=== PATIENT | female | born 1995 | race Two or more races ===

== ENCOUNTER 2017-10-08 20:18 | Emergency (ER) | payer SELFPAY ==
[~2017-10-08] VITALS: Ht 152.4 cm; Wt 50.0 kg
[2017-10-08] MEDS ORDERED: ONDANSETRON HCL 4MG/2ML VIAL IV STA (21:09)
[2017-10-08] MEDS ORDERED: MORPHINE SULFATE 4 MG/ML CPJ (NOT FOR IM USE) IV STA (21:09)
[2017-10-08] MEDS ORDERED: SODIUM CHLORIDE 0.9% 1,000 ML IV ONE (21:09)
[2017-10-08] MEDS ORDERED: TETANUS, DIPHTHERIA, PERTUSSIS VAC/PF 0.5ML (>7YR OLD) IM ONE (21:15)
[2017-10-08] MEDS ORDERED: LIDOCAINE HCL/PF 1% 10 MG/ML 5ML VIAL IJ ONE (21:15)
[2017-10-08 23:30] VITALS: BP 103/62
== END 2017-10-09 00:15 | disposition left against medical advice (07) ==
LOC: ER 20:35
DX: S01.511A Laceration without foreign body of lip, initial encounter (principal); M25.562 Pain in left knee; M54.2 Cervicalgia; M54.9 Dorsalgia, unspecified; G40.909 Epilepsy, unspecified, not intractable, without status epilepticus; F12.10 Cannabis abuse, uncomplicated; V43.12XA Car passenger injured in collision with other type car in nontraffic accident, initial encounter; W22.12XA Striking against or struck by front passenger side automobile airbag, initial encounter; Y93.89 Activity, other specified; Y92.89 Other specified places as the place of occurrence of the external cause; Y99.8 Other external cause status
CPT/HCPCS: 12013; 70450; 71045; 71250; 72070; 72100; 72125; 73521; 73560; 81025; 93005; 99284; J3490; J7030; Z7610; 90715; J2270; J2405

== ENCOUNTER 2018-05-05 10:11 | Inpatient (IN) | payer MEDICAID ==
[~2018-05-05] VITALS: Ht 152.4 cm; Wt 50.3 kg
[2018-05-05] MEDS ORDERED: SODIUM CHLORIDE 0.9% 1,000 ML IV ONE (10:37)
[2018-05-05] MEDS ORDERED: LORAZEPAM 2MG/ML CPJ IV ONE (11:00)
[2018-05-05 11:09] LABS: CLARITY URINE CLOUDY (CLEAR); COLOR URINE DARK YELLOW (YELLOW); KETONES URINE 1+ (NEGATIVE); LEUKOCYTE ESTERASE URINE 1+ (NEGATIVE); NITRITE URINE NEGATIVE (NEGATIVE); OCCULT BLOOD URINE NEGATIVE (NEGATIVE); PROTEIN URINE TRACE (NEGATIVE); SPECIFIC GRAVITY URINE 1.034 (1.005-1.030)
[2018-05-05 11:14] LABS: CHLORIDE 108 mEq/L (98-107)
[2018-05-05 11:21] LABS: BASOPHILS % 0.3 % (0.0-2.0); EOSINOPHILS % 0.4 % (0.0-5.0); ETHANOL BLOOD < 10 mg/dL; HEMATOCRIT. 39.5 % (36.0-48.0); LYMPHOCYTES % 24.8 % (20.0-50.0); MEAN CORPUSCULAR HEMOGLOBIN 30.8 pg (28.0-32.0); MEAN CORPUSCULAR VOLUME 93.7 fL (81.0-99.0); MEAN PLATELET VOLUME 7.9 fl (7.4-10.4); MONOCYTES % 7.6 % (2.0-8.0); NEUTROPHILS % 66.9 % (40.0-76.0); PLATELET 289 x1000/uL (130-400); RED BLOOD CELL COUNT 4.21 mill/uL (4.2-5.4); RED CELL DISTRIBUTION WIDTH 13.2 % (11.6-14.6)
[2018-05-05 11:24] LABS: INR 1.1; PROTHROMBIN TIME 10.7 sec (9.1-11.1)
[2018-05-05] MEDS ORDERED: POTASSIUM CHLORIDE 20MEQ TABLET SR PO ONE (13:30)
[2018-05-05] MEDS ORDERED: POTASSIUM CHLORIDE INJ 40 MEQ in DEXT 5% WATER 500 ML IV ONE (14:00)
[2018-05-05] MEDS ORDERED: LEVETIRACETAM 500MG PREMIX 100 ML IV ONE (14:00)
[2018-05-05 14:12] LABS: *AMPHETAMINES SCREEN URINE NEGATIVE (NEGATIVE); *BARBITURATES SCREEN URINE NEGATIVE (NEGATIVE); *BENZODIAZEPINES SCREEN URINE NEGATIVE (NEGATIVE)
[2018-05-05 14:13] LABS: *COCAINE SCREEN URINE NEGATIVE (NEGATIVE); METHADONE URINE SCREEN NEGATIVE (NEGATIVE); OPIATES URINE SCREEN NEGATIVE (NEGATIVE); PHENCYCLIDINE URINE SCREEN NEGATIVE (NEGATIVE)
[2018-05-05] MEDS ORDERED: GUAIFENESIN 200MG/10ML SUGAR FREE UDC PO PRN (14:30)
[2018-05-05] MEDS ORDERED: LEVETIRACETAM 500MG PREMIX 100 ML IV NR (14:30)
[2018-05-05] MEDS ORDERED: POTASSIUM CHLORIDE INJ 40 MEQ in DEXT 5% WATER 500 ML IV NR (14:30)
[2018-05-05] MEDS ORDERED: IPRATROPIUM/ALBUTEROL 0.5-3(2.5)MG/3ML NEB INH PRN (14:30)
[2018-05-05] MEDS ORDERED: MAGNESIUM/ALUMINUM HYDROXIDE/SIMETHICONE 30ML UDC PO PRN (14:30)
[2018-05-05] MEDS ORDERED: DIPHENHYDRAMINE 50MG/ML VIAL IV PRN (14:30)
[2018-05-05] MEDS ORDERED: CLONIDINE 0.1MG TABLET PO PRN (14:30)
[2018-05-05] MEDS ORDERED: DOCUSATE SODIUM 100MG CAPSULE PO PRN (14:30)
[2018-05-05] MEDS ORDERED: ACETAMINOPHEN 325MG TABLET PO PRN (14:30)
[2018-05-05] MEDS ORDERED: ONDANSETRON HCL 4MG/2ML INJ IV PRN (14:30)
[2018-05-05 14:49] LABS: CANNABINOID URINE SCREEN PRESUMTIVE POSITIVE (NEGATIVE)
[2018-05-05] MEDS ORDERED: HYDROMORPHONE HCL/PF 2MG/ML CPJ IV PRN (17:30)
[2018-05-05 17:47] VITALS: BP 108/73
[2018-05-05] MEDS: ENOXAPARIN 40MG/0.4ML SYR SUBCUT SCH (18:08)
[2018-05-05] MEDS: LORAZEPAM 2MG/ML CPJ IV PRN (18:36)
[2018-05-05 20:00] VITALS: BP 110/58
[2018-05-05] MEDS ORDERED: NA PHOS,M-B/NA PHOS,DI-BA ENEMA 118ML PR PRN (21:00)
[2018-05-05] MEDS: DEXT 5%/0.45% NACL KCL 10MEQ/L 1,000 ML IV SCH (21:18)
[2018-05-06] VITALS: BP 108/52
[2018-05-06 00:27] LABS: CHLORIDE 109 mEq/L (98-107)
[2018-05-06] MEDS: LORAZEPAM 2MG/ML CPJ IV PRN ×4 (03:19→18:06)
[2018-05-06 04:00] VITALS: BP 99/55
[2018-05-06 07:15] LABS: BASOPHILS % 0.4 % (0.0-2.0); EOSINOPHILS % 1.3 % (0.0-5.0); HEMATOCRIT. 39.6 % (36.0-48.0); HEMOGLOBIN. 12.9 g/dL (12.0-16.0); LYMPHOCYTES % 37.8 % (20.0-50.0); MEAN CORPUSCULAR HEMOGLOBIN 30.8 pg (28.0-32.0); MEAN CORPUSCULAR VOLUME 94.2 fL (81.0-99.0); MEAN PLATELET VOLUME 8.3 fl (7.4-10.4); MONOCYTES % 7.6 % (2.0-8.0); NEUTROPHILS % 52.9 % (40.0-76.0); PLATELET 262 x1000/uL (130-400); RED CELL DISTRIBUTION WIDTH 13.1 % (11.6-14.6)
[2018-05-06] MEDS: DEXT 5%/0.45% NACL KCL 10MEQ/L 1,000 ML IV SCH (07:50)
[2018-05-06 08:00] VITALS: BP 100/67
[2018-05-06 08:08] LABS: CHLORIDE 110 mEq/L (98-107)
[2018-05-06 08:17] LABS: LDL CHOLESTEROL 37 mg/dL (5-100)
[2018-05-06 08:19] LABS: HDL CHOLESTEROL 47 mg/dL (40-59); T4 FREE 1.17 ng/dL (0.76-1.46)
[2018-05-06] MEDS ORDERED: LORAZEPAM 2MG/ML CPJ IV ONE (10:00)
[2018-05-06] MEDS: LEVETIRACETAM 500 MG in SODIUM CHLORIDE 0.9% 100 ML IV SCH ×2 (10:40→21:39)
[2018-05-06 11:46] VITALS: BP 99/62
[2018-05-06] MEDS ORDERED: CLONAZEPAM 1MG TABLET PO SCH (15:00)
[2018-05-06 15:51] LABS: UCG SCREEN NEGATIVE
[2018-05-06 16:00] VITALS: BP 102/67
[2018-05-06] MEDS: CLONAZEPAM 0.5MG TABLET PO SCH (16:24)
[2018-05-06] MEDS: ENOXAPARIN 40MG/0.4ML SYR SUBCUT SCH (18:00)
[2018-05-06] MEDS: HYDROCODONE/ACETAMINOPHEN 5/325MG TABLET PO PRN ×2 (18:44→23:50)
[2018-05-06 20:00] VITALS: BP 90/57
[2018-05-07] VITALS: BP 102/56
[2018-05-07] MEDS: LORAZEPAM 2MG/ML CPJ IV PRN (02:20)
[2018-05-07 04:00] VITALS: BP 102/50
[2018-05-07] MEDS: DEXT 5%/0.45% NACL KCL 10MEQ/L 1,000 ML IV SCH ×2 (07:33→10:30)
[2018-05-07] MEDS: CLONAZEPAM 0.5MG TABLET PO SCH (09:00)
[2018-05-07] MEDS: LEVETIRACETAM 500 MG in SODIUM CHLORIDE 0.9% 100 ML IV SCH (09:26)
== END 2018-05-07 15:00 | disposition home or self-care (01) | DRG 241 ==
LOC: ER 10:11 → 8WST 14:10 → ENRESERV 15:51
PROVIDERS: ADMIT Internal Medicine; ATTEND Internal Medicine
DX: K29.70 Gastritis, unspecified, without bleeding (principal); R56.9 Unspecified convulsions; E87.8 Other disorders of electrolyte and fluid balance, not elsewhere classified; F12.90 Cannabis use, unspecified, uncomplicated; I10 Essential (primary) hypertension
CPT/HCPCS: 36415; 71045; 80048; 80061; 80305; 80320; 81025; 83605; 84439; 84443; 84484; 93005; 96365; 96367; 96375; 99285; J1650; J1953; J2060; J3480; J7030; J7050; J7060; G0480

== ENCOUNTER 2019-12-12 11:46 | Inpatient (IN) | payer MEDICAID ==
[~2019-12-12] VITALS: Ht 162.6 cm; Wt 62.1 kg
[2019-12-12] MEDS ORDERED: PNV1TABL76 PO (12:12)
[2019-12-12] MEDS ORDERED: CITRIC ACID/SODIUM CITRATE SOLN 30ML UDC PO NR (13:00)
[2019-12-12] MEDS ORDERED: NALOXONE HCL 0.4 MG/ML 1ML VIAL IM PRN (13:00)
[2019-12-12] MEDS ORDERED: DEXT 5%/LR + PITOCIN 20UNITS/L 1,000 ML IV SCH (13:00)
[2019-12-12] MEDS ORDERED: METHYLERGONOVINE MALEATE 0.2 MG/ML IM PRN (13:00)
[2019-12-12] MEDS ORDERED: CARBOPROST TROMETHAMINE 250 MCG/ML AMPUL IM PRN (13:00)
[2019-12-12] MEDS ORDERED: METOCLOPRAMIDE HCL 10MG/2ML VIAL ONE (13:12)
[2019-12-12] MEDS ORDERED: EPHEDRINE SULFATE 50MG/ML VIAL ONE (13:12)
[2019-12-12] MEDS ORDERED: ONDANSETRON HCL 4MG/2ML INJ ONE (13:12)
[2019-12-12] MEDS ORDERED: OXYTOCIN 10 UNITS/ML 1ML ONE ×2 (13:12→17:29)
[2019-12-12] MEDS ORDERED: GLYCOPYRROLATE 0.2 MG/ML 2ML VIAL ONE (13:12)
[2019-12-12] MEDS ORDERED: MORPHINE SULFATE/PF 1MG/ML 10ML AMP ONE (13:12)
[2019-12-12] MEDS ORDERED: FENTANYL CITRATE/PF 50MCG/ML 2ML VIAL ONE (13:12)
[2019-12-12] MEDS ORDERED: PHENYLEPHRINE HCL 10 MG/ML 1ML (IV VIAL) IV ONE (13:12)
[2019-12-12] MEDS ORDERED: CEFAZOLIN SODIUM 1000MG/VIAL ONE (13:12)
[2019-12-12] MEDS: LACTATED RINGERS 1,000 ML IV SCH ×2 (13:18→14:31)
[2019-12-12 14:21] LABS: BASOPHILS % 0.2 % (0.0-2.0); EOSINOPHILS % 0.8 % (0.0-5.0); HEMATOCRIT. 36.4 % (36.0-48.0); HEMOGLOBIN. 12.2 g/dL (12.0-16.0); LYMPHOCYTES % 19.7 % (20.0-50.0); MEAN CORPUSCULAR HEMOGLOBIN 30.6 pg (28.0-32.0); MEAN CORPUSCULAR VOLUME 91.2 fL (81.0-99.0); MEAN PLATELET VOLUME 8.4 fl (7.4-10.4); MONOCYTES % 6.5 % (2.0-8.0); NEUTROPHILS % 72.8 % (40.0-76.0); PLATELET 245 x1000/uL (130-400); RED BLOOD CELL COUNT 3.99 mill/uL (4.2-5.4); RED CELL DISTRIBUTION WIDTH 13.9 % (11.6-14.6)
[2019-12-12 14:31] LABS: INR 0.9; PARTIAL THROMBOPLASTIN TIME 26.2 sec (23.4-31.0); PROTHROMBIN TIME 9.7 sec (9.6-11.0)
[2019-12-12 14:33] LABS: *AMPHETAMINES SCREEN URINE NEGATIVE (NEGATIVE); *BENZODIAZEPINES SCREEN URINE NEGATIVE (NEGATIVE); *COCAINE SCREEN URINE NEGATIVE (NEGATIVE); CANNABINOID URINE SCREEN NEGATIVE (NEGATIVE); METHADONE URINE SCREEN NEGATIVE (NEGATIVE); OPIATES URINE SCREEN NEGATIVE (NEGATIVE); PHENCYCLIDINE URINE SCREEN NEGATIVE (NEGATIVE)
[2019-12-12 14:34] LABS: *BARBITURATES SCREEN URINE NEGATIVE (NEGATIVE)
[2019-12-12 14:53] LABS: CLARITY URINE CLEAR (CLEAR); COLOR URINE YELLOW (YELLOW); KETONES URINE TRACE (NEGATIVE); LEUKOCYTE ESTERASE URINE 1+ (NEGATIVE); NITRITE URINE NEGATIVE (NEGATIVE); OCCULT BLOOD URINE TRACE (NEGATIVE); PH URINE 5.5 (4.5-8.0); PROTEIN URINE NEGATIVE (NEGATIVE); SPECIFIC GRAVITY URINE 1.017 (1.005-1.030); UROBILINOGEN URINE 0.2 E.U./dL (0.2-1.0)
[2019-12-12] MEDS ORDERED: AMPICILLIN 2,000 MG in SODIUM CHLORIDE 0.9% 100 ML IV SCH (15:00)
[2019-12-12 15:05] LABS: HEPATITIS B SURFACE ANTIGEN NEGATIVE
[2019-12-12] MEDS ORDERED: DIPHENHYDRAMINE 50MG/ML VIAL ONE (17:30)
[2019-12-12] MEDS ORDERED: KETOROLAC 60MG/2ML VIAL IM ONE (17:30)
[2019-12-12] MEDS ORDERED: KETOROLAC 30MG/ML VIAL IV PRN (18:00)
[2019-12-12] MEDS ORDERED: RHO(D) IMMUNE GLOBULIN 300 MCG/SYR IM PRN (18:00)
[2019-12-12] MEDS ORDERED: IBUPROFEN 400MG TABLET PO PRN (18:00)
[2019-12-12] MEDS ORDERED: BISACODYL 10MG SUPP PR PRN (18:00)
[2019-12-12] MEDS ORDERED: DIPHENHYDRAMINE 50MG/ML VIAL IV PRN (18:15)
[2019-12-12] MEDS ORDERED: BUTORPHANOL TARTRATE 2 MG/ML VIAL IV PRN (18:15)
[2019-12-12] MEDS ORDERED: NALOXONE HCL 0.4 MG/ML 1ML VIAL IV PRN (18:15)
[2019-12-12 20:00] VITALS: BP 105/68
[2019-12-12] MEDS ORDERED: AMPICILLIN 1,000 MG in SODIUM CHLORIDE 0.9% 50 ML IV SCH (21:00)
[2019-12-12] MEDS: KETOROLAC 30MG/ML VIAL IV SCH (22:00)
[2019-12-12] MEDS: DEXT 5%/LR + PITOCIN 20UNITS/L 1,000 ML IV SCH (22:00)
[2019-12-13] VITALS: BP 99/61
[2019-12-13 04:00] VITALS: BP 103/66
[2019-12-13] MEDS: KETOROLAC 30MG/ML VIAL IV SCH (04:02)
[2019-12-13] MEDS: DEXT 5%/LR + PITOCIN 20UNITS/L 1,000 ML IV SCH (06:09)
[2019-12-13 06:44] LABS: BASOPHILS % 0.3 % (0.0-2.0); HEMATOCRIT. 32.8 % (36.0-48.0); HEMOGLOBIN. 10.9 g/dL (12.0-16.0); LYMPHOCYTES % 19.5 % (20.0-50.0); MEAN CORPUSCULAR HEMOGLOBIN 30.1 pg (28.0-32.0); MEAN CORPUSCULAR VOLUME 90.6 fL (81.0-99.0); MEAN PLATELET VOLUME 8.3 fl (7.4-10.4); MONOCYTES % 6.9 % (2.0-8.0); NEUTROPHILS % 72.3 % (40.0-76.0); PLATELET 202 x1000/uL (130-400); RED BLOOD CELL COUNT 3.62 mill/uL (4.2-5.4); RED CELL DISTRIBUTION WIDTH 13.7 % (11.6-14.6)
[2019-12-13 08:00] VITALS: BP 99/60
[2019-12-13 12:00] VITALS: BP 98/62
[2019-12-13 15:19] VITALS: BP 106/64
[2019-12-13] MEDS: IBUPROFEN 800MG TABLET PO PRN (16:35)
[2019-12-13 20:00] VITALS: BP 96/63
[2019-12-13] MEDS ORDERED: INFLUENZA VACCINE 05/PF 0.5 ML VIAL IM ONE (21:00)
[2019-12-13] MEDS ORDERED: TETANUS, DIPHTHERIA, PERTUSSIS VAC/PF 0.5ML (>7YR OLD) IM ONE (21:00)
[2019-12-14 04:30] VITALS: BP 102/69
[2019-12-14] MEDS: IBUPROFEN 800MG TABLET PO PRN ×2 (04:39→12:12)
[2019-12-14 07:30] VITALS: BP 100/72
== END 2019-12-14 13:05 | disposition home or self-care (01) | DRG 540 ==
LOC: OBSVTOIN 11:46 → 8 EST LDRP 11:46 → 8EST 20:15
PROVIDERS: ADMIT Obstetrics & Gynecology; ATTEND Obstetrics & Gynecology
PROC: 10D00Z1 Extraction of Products of Conception, Low, Open Approach (ICD-10-PCS; principal; 2019-12-12)
DX: O32.8XX0 Maternal care for other malpresentation of fetus, not applicable or unspecified (principal); O36.5930 Maternal care for other known or suspected poor fetal growth, third trimester, not applicable or unspecified; O99.824 Streptococcus B carrier state complicating childbirth; Z20.828 Contact with and (suspected) exposure to other viral communicable diseases; O99.03 Anemia complicating the puerperium; Z37.0 Single live birth; Z3A.38 38 weeks gestation of pregnancy; Z83.3 Family history of diabetes mellitus
CPT/HCPCS: 36415; 80305; 81003; 85025; 86592; 86703; 86762; 86850; 86900; 87340; 88307; 90686; 90715; 99281; J0290; J0690; J1200; J1885; J2274; J2370; J2405; J2765; J3010; J3490; J7050; J7120; U0003; A4315

== ENCOUNTER 2020-12-23 23:49 | Observation (INO) | payer MEDICAID ==
[~2020-12-23] VITALS: Ht 152.4 cm; Wt 59.0 kg
[2020-12-24] MEDS ORDERED: LACTATED RINGERS 1,000 ML IV SCH (01:15)
[2020-12-24] MEDS ORDERED: PNV1TABL76 MT (02:26)
[2020-12-24 02:39] LABS: CLARITY URINE CLEAR (CLEAR); COLOR URINE YELLOW (YELLOW); KETONES URINE NEGATIVE (NEGATIVE); LEUKOCYTE ESTERASE URINE TRACE (NEGATIVE); NITRITE URINE NEGATIVE (NEGATIVE); OCCULT BLOOD URINE NEGATIVE (NEGATIVE); PROTEIN URINE NEGATIVE (NEGATIVE); SPECIFIC GRAVITY URINE 1.022 (1.005-1.030)
== END 2020-12-24 05:00 | disposition home or self-care (01) ==
LOC: 8 EST LDRP 23:49
PROVIDERS: ADMIT Obstetrics & Gynecology; ATTEND Obstetrics & Gynecology
DX: O26.893 Other specified pregnancy related conditions, third trimester (principal); R10.9 Unspecified abdominal pain; Z3A.34 34 weeks gestation of pregnancy
CPT/HCPCS: 59025; 76805; 76818; 81003; 96360; 96361; G0378; 99281

== ENCOUNTER 2021-01-15 11:37 | Inpatient (IN) | payer MEDICAID ==
[~2021-01-15] VITALS: Ht 152.4 cm; Wt 63.5 kg
[~2021-01-15 11:37] MED LIST: PNV1TABL76 MT
[2021-01-15] MEDS ORDERED: NALOXONE HCL 0.4 MG/ML 1ML VIAL IM PRN (14:45)
[2021-01-15] MEDS ORDERED: METHYLERGONOVINE MALEATE 0.2 MG/ML IM PRN (14:45)
[2021-01-15] MEDS ORDERED: LACTATED RINGERS 1,000 ML IV SCH (15:00)
[2021-01-15] MEDS ORDERED: DEXT 5%/LR + PITOCIN 20UNITS/L 1,000 ML IV SCH ×2 (15:00→20:15)
[2021-01-15 15:15] LABS: BASOPHILS % 0.2 % (0.0-2.0); EOSINOPHILS % 0.9 % (0.0-5.0); HEMATOCRIT. 36.5 % (36.0-48.0); LYMPHOCYTES % 24.4 % (20.0-50.0); MEAN CORPUSCULAR HEMOGLOBIN 28.7 pg (28.0-32.0); MEAN CORPUSCULAR VOLUME 87.5 fL (81.0-99.0); MEAN PLATELET VOLUME 8.3 fl (7.4-10.4); MONOCYTES % 7.5 % (2.0-8.0); PLATELET 278 x1000/uL (130-400); RED BLOOD CELL COUNT 4.17 mill/uL (4.2-5.4); RED CELL DISTRIBUTION WIDTH 13.4 % (11.6-14.6)
[2021-01-15 15:57] LABS: HEPATITIS B SURFACE ANTIGEN NEGATIVE
[2021-01-15 17:16] LABS: INR 0.9; PARTIAL THROMBOPLASTIN TIME 27.1 sec (23.4-31.0); PROTHROMBIN TIME 9.8 sec (9.6-11.0)
[2021-01-15 18:39] LABS: CLARITY URINE CLEAR (CLEAR); COLOR URINE YELLOW (YELLOW); KETONES URINE NEGATIVE (NEGATIVE); LEUKOCYTE ESTERASE URINE TRACE (NEGATIVE); NITRITE URINE NEGATIVE (NEGATIVE); OCCULT BLOOD URINE NEGATIVE (NEGATIVE); PROTEIN URINE NEGATIVE (NEGATIVE); SPECIFIC GRAVITY URINE 1.016 (1.005-1.030)
[2021-01-15] MEDS ORDERED: FENTANYL CITRATE/PF 50MCG/ML 2ML VIAL ONE (18:47)
[2021-01-15] MEDS ORDERED: MORPHINE SULFATE/PF 1MG/ML 10ML AMP ONE (18:47)
[2021-01-15] MEDS ORDERED: CEFAZOLIN SODIUM 1000MG/VIAL ONE (18:47)
[2021-01-15 18:49] LABS: *AMPHETAMINES SCREEN URINE NEGATIVE (NEGATIVE); *BARBITURATES SCREEN URINE NEGATIVE (NEGATIVE); *BENZODIAZEPINES SCREEN URINE NEGATIVE (NEGATIVE); *COCAINE SCREEN URINE NEGATIVE (NEGATIVE)
[2021-01-15 18:50] LABS: CANNABINOID URINE SCREEN NEGATIVE (NEGATIVE); METHADONE URINE SCREEN NEGATIVE (NEGATIVE); OPIATES URINE SCREEN NEGATIVE (NEGATIVE); PHENCYCLIDINE URINE SCREEN NEGATIVE (NEGATIVE)
[2021-01-15] MEDS ORDERED: EPHEDRINE SULFATE 50MG/ML VIAL ONE (19:43)
[2021-01-15] MEDS ORDERED: OXYTOCIN 10 UNITS/ML 1ML ONE (19:44)
[2021-01-15] MEDS ORDERED: ONDANSETRON HCL 4MG/2ML INJ ONE (19:44)
[2021-01-15] MEDS ORDERED: SODIUM CHLORIDE 0.9% 10ML VIAL ONE (19:44)
[2021-01-15] MEDS ORDERED: MEPERIDINE HCL/PF 25MG/ML CPJ IV PRN (19:45)
[2021-01-15] MEDS ORDERED: ONDANSETRON HCL 4MG/2ML INJ IV PRN (19:45)
[2021-01-15] MEDS ORDERED: HYDROMORPHONE HCL/PF 2MG/ML CPJ IV PRN (19:45)
[2021-01-15] MEDS ORDERED: BUTORPHANOL TARTRATE 2 MG/ML VIAL IM PRN (19:45)
[2021-01-15] MEDS ORDERED: LABETALOL 5MG/ML SYR 20 MG/4 ML SYRINGE IV PRN (19:45)
[2021-01-15] MEDS ORDERED: DIPHENHYDRAMINE 50MG/ML VIAL IV PRN (19:45)
[2021-01-15] MEDS ORDERED: BISACODYL 10MG SUPP PR PRN (20:15)
[2021-01-15] MEDS ORDERED: RHO(D) IMMUNE GLOBULIN 300 MCG/SYR IM PRN (20:15)
[2021-01-15] MEDS ORDERED: HYDROMORPHONE HCL/PF 2MG/ML CPJ IM PRN (20:15)
[2021-01-15] MEDS ORDERED: IBUPROFEN 400MG TABLET PO PRN (20:15)
[2021-01-15 22:00] VITALS: BP 102/61
[2021-01-15 22:30] VITALS: BP 109/75
[2021-01-15 23:00] VITALS: BP 104/70
[2021-01-15] MEDS: KETOROLAC 30MG/ML VIAL IV PRN (23:54)
[2021-01-16 04:15] VITALS: BP 95/58
[2021-01-16 08:00] VITALS: BP 98/63
[2021-01-16] MEDS: KETOROLAC 30MG/ML VIAL IV PRN (09:29)
[2021-01-16 11:27] LABS: BASOPHILS % 0.1 % (0.0-2.0); EOSINOPHILS % 0.5 % (0.0-5.0); HEMATOCRIT. 33.9 % (36.0-48.0); HEMOGLOBIN. 11.2 g/dL (12.0-16.0); LYMPHOCYTES % 17.4 % (20.0-50.0); MEAN PLATELET VOLUME 8.4 fl (7.4-10.4); MONOCYTES % 6.3 % (2.0-8.0); NEUTROPHILS % 75.7 % (40.0-76.0); PLATELET 223 x1000/uL (130-400); RED BLOOD CELL COUNT 3.85 mill/uL (4.2-5.4); RED CELL DISTRIBUTION WIDTH 13.4 % (11.6-14.6)
[2021-01-16 15:56] VITALS: BP 101/65
[2021-01-16 20:00] VITALS: BP 92/57
[2021-01-16] MEDS ORDERED: TETANUS, DIPHTHERIA, PERTUSSIS VAC/PF 0.5ML (>10YR OLD) IM ONE (21:00)
[2021-01-16] MEDS ORDERED: INFLUENZA VACCINE 05/PF 0.5 ML SYRINGE IM ONE (21:00)
[2021-01-16] MEDS: IBUPROFEN 800MG TABLET PO PRN (21:47)
[2021-01-17 00:30] VITALS: BP 95/60
[2021-01-17 04:06] VITALS: BP 108/78
[2021-01-17 07:30] VITALS: BP 95/58
[2021-01-17] MEDS: IBUPROFEN 800MG TABLET PO PRN ×3 (08:01→21:49)
[2021-01-17] MEDS: PRENATAL VIT/FE FUMARATE/FA TABLET PO SCH (08:02)
[2021-01-17] MEDS: FERROUS SULFATE 325MG TABLET PO SCH ×3 (08:02→18:04)
[2021-01-17 16:02] VITALS: BP 109/71
[2021-01-17 21:21] VITALS: BP 105/68
[2021-01-18 00:59] VITALS: BP 108/75
[2021-01-18] MEDS ORDERED: NORE0.3520 MT (07:46)
[2021-01-18] MEDS ORDERED: IBUP-2030 PO (07:46)
[2021-01-18] MEDS ORDERED: FERR-63 PO (07:46)
[2021-01-18 08:00] VITALS: BP 102/58
[2021-01-18 09:12] VITALS: BP 102/58
[2021-01-18] MEDS: FERROUS SULFATE 325MG TABLET PO SCH (09:12)
[2021-01-18] MEDS: PRENATAL VIT/FE FUMARATE/FA TABLET PO SCH (09:12)
[2021-01-18] MEDS: IBUPROFEN 800MG TABLET PO PRN (09:12)
== END 2021-01-18 13:45 | disposition home or self-care (01) | DRG 540 ==
LOC: 8 EST LDRP 11:37 → OBSVTOIN 11:37 → 8EST 21:50
PROVIDERS: ADMIT Obstetrics & Gynecology; ATTEND Obstetrics & Gynecology
PROC: 10D00Z1 Extraction of Products of Conception, Low, Open Approach (ICD-10-PCS; principal; 2021-01-15)
DX: O36.5930 Maternal care for other known or suspected poor fetal growth, third trimester, not applicable or unspecified (principal); O41.03X0 Oligohydramnios, third trimester, not applicable or unspecified; Z20.822 Contact with and (suspected) exposure to COVID-19; O34.211 Maternal care for low transverse scar from previous cesarean delivery; Z37.0 Single live birth; Z3A.37 37 weeks gestation of pregnancy; Z83.3 Family history of diabetes mellitus
CPT/HCPCS: 36415; 76805; 76818; 80305; 81003; 85025; 86592; 86703; 86762; 86850; 86900; 87340; 87426; 88307; 90686; 90715; G0378; J0690; J1885; J2274; J2405; J2590; J3010; J3490; J7120; A4315

== ENCOUNTER 2022-09-16 20:17 | Observation (INO) | payer MEDICAID, OTHER ==
[~2022-09-16] VITALS: Ht 152.4 cm; Wt 61.2 kg
[~2022-09-16 20:17] MED LIST changes: +FERR-63 PO; +IBUP-2030 PO; +NORE0.3520 MT
[2022-09-17] MEDS ORDERED: PNV1TABL50 MT (00:11)
== END 2022-09-17 01:49 | disposition home or self-care (01) ==
LOC: 8 EST LDRP 20:17
PROVIDERS: ADMIT Obstetrics & Gynecology; ATTEND Obstetrics & Gynecology
DX: O26.893 Other specified pregnancy related conditions, third trimester (principal); R10.30 Lower abdominal pain, unspecified; Z3A.32 32 weeks gestation of pregnancy; W50.0XXA Accidental hit or strike by another person, initial encounter; Y93.89 Activity, other specified; Y92.89 Other specified places as the place of occurrence of the external cause; Y99.8 Other external cause status
CPT/HCPCS: 99281; 76818; 76805; 59025; G0378 ×4; G0379

== ENCOUNTER 2022-11-05 09:08 | Inpatient (IN) | payer OTHER ==
[~2022-11-05] VITALS: Ht 152.4 cm; Wt 65.3 kg
[~2022-11-05 09:08] MED LIST changes: +PNV1TABL50 MT
[2022-11-05] MEDS ORDERED: RHO(D) IMMUNE GLOBULIN 300 MCG/SYR IM NR (11:30)
[2022-11-05 11:34] LABS: BASOPHILS % 0.4 % (0.0-2.0); EOSINOPHILS % 1.4 % (0.0-5.0); HEMATOCRIT. 36.1 % (36.0-48.0); HEMOGLOBIN. 11.8 g/dL (12.0-16.0); LYMPHOCYTES % 22.8 % (20.0-50.0); MEAN CORPUSCULAR HEMOGLOBIN 29.4 pg (28.0-32.0); MEAN CORPUSCULAR HGB CONC 32.8 g/dL (31.0-37.0); MEAN CORPUSCULAR VOLUME 89.8 fL (81.0-99.0); MEAN PLATELET VOLUME 8.8 fl (7.4-10.4); MONOCYTES % 6.9 % (2.0-8.0); NEUTROPHILS % 68.5 % (40.0-76.0); PLATELET 241 x1000/uL (130-400); RED BLOOD CELL COUNT 4.01 mill/uL (4.2-5.4); RED CELL DISTRIBUTION WIDTH 14.8 % (11.6-14.6); WHITE BLOOD COUNT 12.5 x1000/uL (4.5-11.0)
[2022-11-05] MEDS: LACTATED RINGERS 1,000 ML IV SCH ×3 (11:40→14:18)
[2022-11-05 11:41] LABS: CLARITY URINE CLOUDY (CLEAR); COLOR URINE YELLOW (YELLOW); GLUCOSE URINE NEGATIVE (NEGATIVE); KETONES URINE NEGATIVE (NEGATIVE); LEUKOCYTE ESTERASE URINE 1+ (NEGATIVE); NITRITE URINE NEGATIVE (NEGATIVE); OCCULT BLOOD URINE NEGATIVE (NEGATIVE); PH URINE 6.5 (4.5-8.0); PROTEIN URINE NEGATIVE (NEGATIVE); SPECIFIC GRAVITY URINE 1.019 (1.005-1.030); UROBILINOGEN URINE 0.2 E.U./dL (0.2-1.0)
[2022-11-05 12:06] LABS: *AMPHETAMINES SCREEN URINE NEGATIVE (NEGATIVE); *BARBITURATES SCREEN URINE NEGATIVE (NEGATIVE); *BENZODIAZEPINES SCREEN URINE NEGATIVE (NEGATIVE); *COCAINE SCREEN URINE NEGATIVE (NEGATIVE); CANNABINOID URINE SCREEN NEGATIVE (NEGATIVE); ECSTASY MDMA SCREEN URINE NEGATIVE (NEGATIVE); OPIATES URINE SCREEN NEGATIVE (NEGATIVE); PHENCYCLIDINE URINE SCREEN NEGATIVE (NEGATIVE)
[2022-11-05 12:33] LABS: RAPID HIV SCREEN NEGATIVE (NEGATIVE)
[2022-11-05 12:40] LABS: BACTERIA URINE 2+; SQUAMOUS EPITHELIAL CELL URINE 3+ /lpf (RARE/1+)
[2022-11-05 12:42] LABS: RBC URINE NONE SEEN /hpf (0-2); WBC URINE 0-2 /hpf (0-2)
[2022-11-05] MEDS ORDERED: LACTATED RINGERS 1,000 ML IV SCH (13:00)
[2022-11-05] MEDS ORDERED: MORPHINE SULFATE 10 MG/ML CPJ IV PRN (14:00)
[2022-11-05] MEDS ORDERED: ONDANSETRON HCL 4MG/2ML INJ IV PRN ×2 (14:00→18:15)
[2022-11-05] MEDS ORDERED: NALOXONE HCL 0.4 MG/ML 1ML VIAL IV PRN (14:00)
[2022-11-05] MEDS ORDERED: DIPHENHYDRAMINE 50MG/ML VIAL IV PRN (14:00)
[2022-11-05] MEDS ORDERED: METOCLOPRAMIDE HCL 10MG/2ML VIAL IV PRN (14:00)
[2022-11-05] MEDS ORDERED: FENTANYL CITRATE/PF 50MCG/ML 2ML VIAL IV PRN (14:00)
[2022-11-05] MEDS ORDERED: MORPHINE SULFATE 2 MG/ML CPJ (NOT FOR IM USE) IV PRN (14:15)
[2022-11-05 14:59] LABS: HEPATITIS B SURFACE ANTIGEN NEGATIVE; RUBELLA IGG 16.3 IU/mL (4.99-10)
[2022-11-05 15:52] LABS: INR 0.9; PARTIAL THROMBOPLASTIN TIME 27.8 sec (23.4-31.0); PROTHROMBIN TIME 9.6 sec (9.6-11.0)
[2022-11-05 18:00] VITALS: BP 101/69; PULSE 65; RESP 18; TEMP 98.4; O2SAT 99
[2022-11-05] MEDS ORDERED: DIPHENHYDRAMINE 25MG CAPSULE PO PRN (18:15)
[2022-11-05] MEDS ORDERED: OXYTOCIN 30 UNITS/500ML NS PMX 500 ML IV SCH (18:15)
[2022-11-05] MEDS ORDERED: BISACODYL 10MG SUPP PR PRN (18:15)
[2022-11-05] MEDS ORDERED: LANOLIN OINT 7GM TUBE TOP PRN (18:15)
[2022-11-05] MEDS ORDERED: HEMORRHOIDAL SUPP PR PRN (18:15)
[2022-11-05] MEDS ORDERED: IBUPROFEN 400MG TABLET PO PRN (18:15)
[2022-11-05] MEDS ORDERED: RHO(D) IMMUNE GLOBULIN 300 MCG/SYR IM PRN (18:15)
[2022-11-05] MEDS ORDERED: NALOXONE HCL 0.4MG/ML VIAL IV PRN (18:45)
[2022-11-05 19:30] VITALS: BP 101/58; PULSE 60; RESP 18; TEMP 97.6; O2SAT 96
[2022-11-05] MEDS: MAGNESIUM/ALUMINUM HYDROXIDE/SIMETHICONE 30ML UDC PO SCH (20:37)
[2022-11-05] MEDS: DOCUSATE SODIUM 100MG CAPSULE PO SCH (20:37)
[2022-11-05] MEDS: SIMETHICONE 80MG TABLET CHEW PO SCH (20:37)
[2022-11-05] MEDS: KETOROLAC 30MG/ML VIAL IV PRN (20:38)
[2022-11-06] MEDS: KETOROLAC 30MG/ML VIAL IV PRN ×2 (03:40→17:37)
[2022-11-06 04:00] VITALS: BP 97/58; PULSE 53; RESP 20; TEMP 97.8
[2022-11-06 07:29] LABS: BASOPHILS % 0.1 % (0.0-2.0); HEMATOCRIT. 31.2 % (36.0-48.0); HEMOGLOBIN. 10.5 g/dL (12.0-16.0); LYMPHOCYTES % 13.7 % (20.0-50.0); MEAN CORPUSCULAR HGB CONC 33.6 g/dL (31.0-37.0); MEAN CORPUSCULAR VOLUME 89.4 fL (81.0-99.0); MEAN PLATELET VOLUME 8.7 fl (7.4-10.4); MONOCYTES % 7.1 % (2.0-8.0); NEUTROPHILS % 79.1 % (40.0-76.0); PLATELET 222 x1000/uL (130-400); RED BLOOD CELL COUNT 3.49 mill/uL (4.2-5.4); RED CELL DISTRIBUTION WIDTH 14.5 % (11.6-14.6); WHITE BLOOD COUNT 16.7 x1000/uL (4.5-11.0)
[2022-11-06 07:45] VITALS: O2SAT 98
[2022-11-06] MEDS: PRENATAL VIT/FE FUMARATE/FA TABLET PO SCH (08:45)
[2022-11-06] MEDS: SIMETHICONE 80MG TABLET CHEW PO SCH ×4 (08:45→22:41)
[2022-11-06] MEDS: FERROUS SULFATE 325MG TABLET PO SCH ×3 (08:45→17:37)
[2022-11-06] MEDS: MAGNESIUM/ALUMINUM HYDROXIDE/SIMETHICONE 30ML UDC PO SCH ×4 (08:46→22:41)
[2022-11-06 12:26] VITALS: BP 102/60; PULSE 60; RESP 20; TEMP 97.8
[2022-11-06 16:24] VITALS: BP 90/60; PULSE 60; RESP 20; TEMP 98
[2022-11-06] MEDS: IBUPROFEN 800MG TABLET PO PRN ×2 (16:26→22:42)
[2022-11-06 20:00] VITALS: BP 105/65; PULSE 82; RESP 18; TEMP 98.2; O2SAT 98
[2022-11-06] MEDS: DOCUSATE SODIUM 100MG CAPSULE PO SCH (22:41)
[2022-11-07 04:00] VITALS: BP 95/53; PULSE 64; RESP 17; TEMP 98.4
[2022-11-07] MEDS: FERROUS SULFATE 325MG TABLET PO SCH ×3 (07:30→17:23)
[2022-11-07] MEDS: MAGNESIUM/ALUMINUM HYDROXIDE/SIMETHICONE 30ML UDC PO SCH ×4 (07:30→20:31)
[2022-11-07 08:00] VITALS: BP 109/74; PULSE 67; RESP 18; TEMP 98.6; O2SAT 98
[2022-11-07] MEDS: SIMETHICONE 80MG TABLET CHEW PO SCH ×4 (08:00→20:32)
[2022-11-07] MEDS: PRENATAL VIT/FE FUMARATE/FA TABLET PO SCH (08:21)
[2022-11-07] MEDS: IBUPROFEN 800MG TABLET PO PRN ×2 (09:18→17:55)
[2022-11-07 16:00] VITALS: BP 98/58; PULSE 82; RESP 18; TEMP 98.3
[2022-11-07 19:30] VITALS: BP 115/75; PULSE 73; RESP 18; TEMP 98; O2SAT 97
[2022-11-07] MEDS: ACETAMINOPHEN WITH CODEINE 300/30MG TABLET PO PRN (20:32)
[2022-11-07] MEDS: DOCUSATE SODIUM 100MG CAPSULE PO SCH (20:32)
[2022-11-07] MEDS ORDERED: INFLUENZA VACCINE 05/PF 0.5 ML SYRINGE IM ONE (21:45)
[2022-11-07] MEDS ORDERED: TETANUS, DIPHTHERIA, PERTUSSIS VAC/PF 0.5ML (>10YR OLD) IM ONE (21:45)
[2022-11-08 03:30] VITALS: BP 97/54; PULSE 87; RESP 18; TEMP 98.2
[2022-11-08] MEDS: ACETAMINOPHEN WITH CODEINE 300/30MG TABLET PO PRN (04:38)
[2022-11-08 08:00] VITALS: BP 116/67; PULSE 79; RESP 18; TEMP 98.9; O2SAT 97
[2022-11-08] MEDS: SIMETHICONE 80MG TABLET CHEW PO SCH (08:24)
[2022-11-08] MEDS: PRENATAL VIT/FE FUMARATE/FA TABLET PO SCH (08:24)
[2022-11-08] MEDS: FERROUS SULFATE 325MG TABLET PO SCH (08:24)
[2022-11-08] MEDS ORDERED: IBUP-2030 PO (14:00)
[2022-11-08 15:22] LABS: BASOPHILS % 0.2 % (0.0-2.0); EOSINOPHILS % 1.8 % (0.0-5.0); HEMATOCRIT. 31.6 % (36.0-48.0); HEMOGLOBIN. 10.4 g/dL (12.0-16.0); LYMPHOCYTES % 21.5 % (20.0-50.0); MEAN CORPUSCULAR HEMOGLOBIN 29.4 pg (28.0-32.0); MEAN CORPUSCULAR HGB CONC 32.8 g/dL (31.0-37.0); MEAN CORPUSCULAR VOLUME 89.5 fL (81.0-99.0); MEAN PLATELET VOLUME 8.1 fl (7.4-10.4); NEUTROPHILS % 70.5 % (40.0-76.0); PLATELET 242 x1000/uL (130-400); RED BLOOD CELL COUNT 3.53 mill/uL (4.2-5.4); RED CELL DISTRIBUTION WIDTH 14.9 % (11.6-14.6); WHITE BLOOD COUNT 11.8 x1000/uL (4.5-11.0)
== END 2022-11-08 16:20 | disposition home or self-care (01) | DRG 540 ==
LOC: OBSVTOIN 09:08 → 8 EST LDRP 09:08 → 8EST 17:30
PROVIDERS: ADMIT Obstetrics & Gynecology; ATTEND Obstetrics & Gynecology
PROC: 10D00Z1 Extraction of Products of Conception, Low, Open Approach (ICD-10-PCS; principal; 2022-11-05)
DX: O34.211 Maternal care for low transverse scar from previous cesarean delivery (principal); O90.81 Anemia of the puerperium; Z37.0 Single live birth; Z3A.39 39 weeks gestation of pregnancy
CPT/HCPCS: 36415; 80305; 81003; 85025; 86592; 86703; 86762; 86850; 86900; 86920; 87340; 88307; 90686; 90715; 99281; J1885; J7120; A4315; J2590